=== PATIENT | female | born 1945 | race Caucasian/White ===

== ENCOUNTER 2016-06-27 10:05 | Observation (INO) | payer MEDICARE, OTHER ==
[2016-06-27] VITALS (9 sets, daily range): BP systolic 102–140; BP diastolic 50–70; PULSE 72–88; RESP 14–18; O2SAT 94–100
[~2016-06-27] VITALS: Ht 170.2 cm; Wt 61.8 kg
--- NOTE | 2016-06-27 10:14 | ED.REPORT ---
HPI-General Illness Date of Service June 27, 2016 ED Provider: Dr. An Pt is a 71 y/o female anticoagulated on Warfarin w/ a hx of factor V disorder, atrial fibrillation, hyperlipidemia, presenting to the ED via EMS c/o spinning- sensation dizziness onset this morning. The patient woke up and began experiencing spinning sensation dizziness, fatigue, nausea, and vomiting while laying in bed. These episodes last about 5 seconds each time and have decreased in severity since onset. Her dizziness is exacerbated by horizontal head movements. Symptoms are relived by remaining still. Pt denies any vision change , speech change, headache, focal numbness or weakness, syncope. Nursing Notes Stated Complaint: DIZZY Chief Complaint: General Complaint Nursing Notes Reviewed: Yes Allergies: Coded Allergies: No Known Allergies (Unverified , 06/27/16) Scheduled Atorvastatin (Lipitor) 10 Mg Tab 10 MG PO HS Calcium Carbonate/Vitamin D3 (Calcium 500 + Vit D 200 Tablet) 1 Each Tablet 1 EACH PO DAILY Cholecalciferol (Vitamin D3) (Vitamin D3) 2,000 Unit Tablet 2,000 UNIT PO DAILY Metoprolol Tartrate (Metoprolol Tartrate) 50 Mg Tablet 50 MG PO BID Risedronate Sodium (Risedronate Sodium) 35 Mg Tablet 35 MG PO WEEKLY Warfarin Sodium (Coumadin) 10 Mg Tablet 10 MG PO QPM Scheduled PRN Acyclovir (Acyclovir) 400 Mg Tablet 400 MG PO TID PRN PRN cold sores Alprazolam (Alprazolam) 0.5 Mg Tablet 0.5 MG PO TID PRN PRN For Anxiety General Time Seen by MD: 10:14 Chief Complaint Dizziness Hx Obtained From: Patient, EMS Arrived By: Ambulance Sudden in Onset?: No Onset Occurred: 1 - 4 hours ago Symptom Duration: Since onset Severity: Current: No pain currently Severity: Maximum: No pain Past Medical History Past Medical History Osteoporosis Atrial fibrillation Factor V clotting disorder on Warfarin Hyperlipidemia Past Surgical History Bilateral hip replacement "Bowel surgery" Colostomy reversal Hernia repair Smoking History Unknown if Ever Smoker Social History Alcohol Use: Denies alcohol use Drug Use: Denies drug use Ambulatory Status Independent Review of Systems Full Review of Systems Constitutional: Reports: Fatigue, Denies: Chills, Fever Respiratory: Denies: Non-productive cough, Shortness of breath Cardiovascular: Denies: Chest pain, Dyspnea on exertion GI: Reports: Nausea, Vomiting, Denies: Abdominal pain Neurologic: Reports: Dizziness, Spinning sensation, Denies: Bladder dysfunction, Bowel dysfunction, Change LOC, Confusion, Focal weakness, Headache, Numbness, Seizure, Shaking, Slurred speech, Syncope, Unable to speak, Vision change, Weakness Complete sys rev & neg: except as marked. Physical Exam Vital Signs Vital Signs Date Time Temp Pulse Resp B/P Pulse Ox O2 Delivery O2 Flow Rate FiO2 06/27/16 13:56 76 18 102/50 94 Room Air 06/27/16 12:21 88 16 107/64 97 Room Air 06/27/16 11:06 87 16 121/57 100 Room Air 06/27/16 10:12 36.1 77 14 140/70 97 Room Air Initial VS: Reviewed, Vital signs normal Head / Eyes: Atraumatic, Normocephalic, PERRL ENT: Mucous membranes moist, Conjunctiva normal, No scleral icterus Neck: Supple, Full range of motion Respiratory: Breath sounds normal, Clear to auscultation, No respiratory distress Cardiovascular: Regular rate & rhythm, Heart sounds normal, Intact distal pulses Abdomen / GI: Soft, Non-tender Extremities: Vascular intact, Neuro intact, No swelling, No tenderness Skin: Warm, Dry, No cyanosis Psychiatric: Mood/affect normal, Behavior normal, Normal thought content General/Constitutional: Awake, Alert, No acute distress, Cooperative, Not toxic appearing Neurologic: Oriented X3, Speech NL, No motor deficits, No sensory deficits, CN II - XII intact, Cerebellar NL, Memory NL Transient vertigo lasting 5 seconds triggered by head movements laterally Interpretation & Diagnostics Interpretation & Diagnostics: CT head and neck with perfusion: IMPRESSION: 1. No acute intracranial process. 2. Mild to moderate atrophy and chronic microvascular ischemic changes. 3. No areas of hemodynamically significant stenosis, vascular occlusion or aneurysmal dilation within the anterior circulation. 4. No areas of hemodynamically significant stenosis, vascular occlusion or aneurysmal dilation within the posterior circulation. 5. No areas of hemodynamically significant stenosis, vascular occlusion or aneurysmal dilation within the neck vasculature. Dictated by: Consuelo Mohan M.D. on 06/27/2016 at 13:37 Approved by: Consuelo Mohan M.D. on 06/27/2016 at 13:50 Lab Results Interpretation Result Diagram: 06/27/16 1040 06/27/16 1040 Test 06/27/16 10:40 White Blood Count 5.5th/mm3 (3.8-10.1) Red Blood Count 4.10mil/mm3 (3.90-5.20) Hemoglobin 12.3g/dL (12.0-15.6) Hematocrit 36.5% (35.0-46.0) Mean Corpuscular Volume 89.0fL (81-100) Mean Corpuscular Hemoglobin 30.0pg (27.0-35.0) Mean Corpuscular Hemoglobin Concent 33.7% (32.0-37.0) Red Cell Distribution Width 13.7% (12.3-15.4) Platelet Count 177bil/L (150-400) Neutrophils (%) (Auto) 72.6% (40-74) Lymphocytes (%) (Auto) 18.5% (14-46) Monocytes (%) (Auto) 8.2% (4-12) Eosinophils (%) (Auto) 0.5% (0-5) Basophils (%) (Auto) 0.2% (0-3) Prothrombin Time 34.8sec (8.1-12.5) Prothromb Time International Ratio 3.18ratio Sodium Level 143mEq/L (134-144) Potassium Level 3.7mEq/L (3.5-5.2) Chloride Level 106mEq/L (97-108) Carbon Dioxide Level 21mmol/L (18-29) Blood Urea Nitrogen 15mg/dL (8-27) Creatinine 0.67mg/dL (0.57-1.00) Estimat Glomerular Filtration Rate 125mL/min (>59) Glucose Level 118mg/dL (60-99) Calcium Level 9.2mg/dL (8.5-10.1) Total Bilirubin 0.5mg/dL (0.0-1.2) Aspartate Amino Transf (AST/SGOT) 28U/L (0-50) Alanine Aminotransferase (ALT/SGPT) 18U/L (0-32) Alkaline Phosphatase 64U/L (25-165) Total Protein 6.3g/dL (6.4-8.4) Albumin 4.2g/dL (3.4-5.0) Hold Ocasio Top Tube Received (Received) ECG Interpretation ECG Interpretation: Sinus rhythm rate [address] depression diffusely Time: 11:11 Interpreted by: ED physician Normal ECG Interpretation: No acute ischemic changes CT Head Interpretation IMPRESSION: No acute intracranial abnormality. Dictated by: Chavez Mcneil M.D. on 06/27/2016 at 11:07 Approved by: Chavez Mcneil M.D. on 06/27/2016 at 11:08 Study: Head CT no contrast Interpretation / Wet Read by: Interpret - Radiologist Re-Eval/Medical Decision Med Decision/Clinical Course Overall her story sounds like BPPV however it is refractory to both meclizine and Ativan and she is unable to sit up or ambulate. Her CT brain and CT angiogram head and neck are unremarkable. Unfortunately she is not any clinical status functionally where she would be able to go home. Additionally she is at higher risk in both her warfarin usage puts her at increased risk of bleeding if she did have persistent dizziness and fell as well as her factor V Leiden which puts her at increased risk of thromboembolic events. My plan is to admit her for observation and clinical improvement and allow further delineation as the cause of her dizziness. She is obviously not a TPA candidate as we do not see any obvious signs or symptoms of stroke beyond its sense of vertigo, as well as the fact that she is on warfarin with a supratherapeutic INR, as well as the fact that this was a events and we do not know the exact time of onset which puts her outside of a 3 or 4-1/2 hour window. Time of Eval: 12:00 Re-Evaluation/Progress Note: Failed road test. Plan for observe and possible admit. Time of Eval: 14:40 Re-Evaluation/Progress Note: Pt rechecked. Informed pt of need for admission. Pt understands and agrees with plan for admission. All questions addressed. Consultation : Referral / Consult Name: Yamel Erickson DO Consulted With: Hospitalist Call Returned at: 14:40 Neurology Tech: Will see patient, Agrees with eval, Agrees with plan, Accepts admit Counseled Regarding: Diagnosis, Lab results, Need for admission Discharge & Departure Primary Impression: Vertigo Disposition: ADMITTED TO HOSPITAL Discharge Condition All VS Reviewed: Yes Condition: Stable Referrals: Clover Dutton DO (PCP) Scribe Attestation Portions of this note were transcribed by Chan Traore. IDr. An personally performed the history, physical exam and medical decision-making; I reviewed and confirmed the accuracy of the information in the transcribed note. Signed by Eliud Larkin, 06/27/16 - 1030 copies to: Clover Dutton Timothy S DO June 27, 2016 10:14 CHAN TRAORE June 27, 2016 10:30
[2016-06-27] MEDS ORDERED: 0.9% Sodium Chloride 1,000 ML IV ONE (10:29)
[2016-06-27] MEDS ORDERED: Ondansetron 2 mg/mL 2 mL Inj ONE (10:46)
[2016-06-27 10:59] LABS: BASOPHILS % (AUTO) 0.2 % (0-3); EOSINOPHILS % (AUTO) 0.5 % (0-5); MONOCYTES % (AUTO) 8.2 % (4-12); NEUTROPHILS % (AUTO) 72.6 % (40-74); Platelet Count 177 bil/L (150-400)
--- NOTE | 2016-06-27 11:10 | DRSVH ---
PROCEDURE: CT BRAIN WITHOUT CONTRAST ([id number]) INDICATIONS: dizziness, on coumadin TECHNIQUE: Noncontrast 4.5 mm thick angled axial sections acquired from the foramen magnum to the vertex, with c oronal reformats. COMPARISON: None. FINDINGS: Image quality: Excellent. CSF spaces: Basal cisterns are patent. No extra-axial fluid collections. The ventricles are symmet ivana in size and shape. Brain: No intracranial bleeds or masses. There is cerebral volume loss for age, with resultant vent ricular and sulcal prominence. There are periventricular and deep white matter chronic small vessel ischemic changes. There is intracranial internal carotid artery atherosclerosis. Skull and face: Calvarium and visualized facial bones appear intact, without suspicious lesions. Sinuses: Visualized sinuses and mastoids are clear. IMPRESSION: No acute intracranial abnormality. Dictated by: Chavez Mcniel M.D. on 06/27/2016 at 11:07 Approved by: Chavez Mcneil M.D. on 06/27/2016 at 11:08
[2016-06-27 11:15] LABS: INR 3.18 ratio
[2016-06-27] MEDS ORDERED: Ondansetron 2 mg/mL 2 mL Inj IVPUSH PRN ×2 (11:20→14:50)
--- NOTE | 2016-06-27 13:52 | DRSVH ---
PROCEDURE: CT ANGIO HEAD AND NECK (P) INDICATIONS: dizziness, h/o factor v leiden TECHNIQUE: Pre-contrast 4.5 mm thick sections acquired from the foramen magnum to the vertex. After the adminis tration of intravenous contrast, 1 mm thick sections acquired from the aortic arch through the [place] of [place]. Post-contrast 4.5 mm thick sections then re-acquired from the foramen magnum to the vert ex. 3-dimensional qevbhps-wtrdwgyqq-ikasmuvdqa (MIP) and/or volume rendering reformats were acquired of the central intracranial vasculature and neck separately. For radiation dose reduction, the foll owing was used: automated exposure control, adjustment of mA and/or kV according to patient size. COMPARISON: , CT, CT BRAIN WO CON, 06/27/2016, 10:59. FINDINGS: Image quality: Excellent. BRAIN: CSF spaces: Ventricles are normal in size and shape. Basal cisterns are patent. No extra-axial flu id collections. Brain: No midline shift. No intracranial bleeds or masses. Tapia-white matter interface appears int act. Skull and face: Calvarium and facial bones appear intact, without suspicious lesions. Orbits appear normal. Sinuses: Sinuses and mastoids are clear. HEAD CT ANGIOGRAPHY: Anterior circulation: Intracranial internal carotid arteries are normal in size and flow. The flow within the paired anterior cerebral arteries is normal and symmetric. The flow within the middle cer ebral arteries is normal and symmetric. The anterior communicating artery is seen. No aneurysms are seen. Posterior circulation: Visualized portions of the vertebral arteries demonstrate normal caliber, and join to form a normal appearing basilar artery. Flow within the posterior cerebral arteries is norm al and symmetric. No aneurysms are seen. NECK CT ANGIOGRAPHY: Carotid system: The great vessels demonstrate a conventional anatomy as they arise from the aortic a [facility]. The origins of the common carotid arteries appear patent. The common carotid arteries demonstr ate normal caliber and courses. The bifurcation regions are both widely patent. The internal caroti d arteries demonstrate normal calibers and courses. Posterior circulation: The origins of the vertebral arteries both appear widely patent. The more real perior extracranial portions of both vertebral arteries also demonstrate normal courses and calibers. They join to form a normal appearing basilar artery. Soft tissues: Visualized neck soft tissues demonstrate no suspicious abnormalities. Bones: No suspicious bony lesions. Visualized cervical spine appears normally aligned. IMPRESSION: 1. No acute intracranial process. 2. Mild to moderate atrophy and chronic microvascular ischemic changes. 3. No areas of hemodynamically significant stenosis, vascular occlusion or aneurysmal dilation withi n the anterior circulation. 4. No areas of hemodynamically significant stenosis, vascular occlusion or aneurysmal dilation within the posterior circulation. 5. No areas of hemodynamically significant stenosis, vascular occlusion or aneurysmal dilation within the neck vasculature. Dictated by: Consuelo Mohan M.D. on 06/27/2016 at 13:37 Approved by: Consuelo Mohan M.D. on 06/27/2016 at 13:50
[2016-06-27] MEDS ORDERED: ATRV10T PO (14:12)
[2016-06-27] MEDS ORDERED: ALPR0.5T8 PO (14:12)
[2016-06-27] MEDS ORDERED: WARF10TA PO (14:12)
[2016-06-27] MEDS ORDERED: CALC-72 PO (14:12)
[2016-06-27] MEDS ORDERED: ACYC400T2 PO (14:12)
[2016-06-27] MEDS ORDERED: METO50TA3 PO (14:12)
[2016-06-27] MEDS ORDERED: CHOL200025 PO (14:12)
[2016-06-27] MEDS ORDERED: RISE35TA13 PO (14:12)
[2016-06-27] MEDS ORDERED: Alum-Mag Hydrox-Simeth 30 mL Suspension PO PRN (14:50)
[2016-06-27] MEDS ORDERED: Polyethylene Glycol (PEG) 17 Gm Powder PO PRN (15:25)
[2016-06-27] MEDS: 0.9% Sodium Chloride 1,000 ML IV SCH (15:52)
[2016-06-27 16:09] LABS: APPEARANCE,URINE CLEAR (CLEAR,HAZY); COLOR,URINE YELLOW (YELLOW)
[2016-06-27 16:10] LABS: OCCULT BLOOD,URINE TRACE (NEGATIVE); UROBILINOGEN,URINE NORMAL (NORMAL)
[2016-06-27] MEDS ORDERED: LORazepam 0.5 mg Tablet PO ONE ×2 (16:35→20:50)
--- NOTE | 2016-06-27 16:45 | PCM.HPMED ---
Subjective Date of Service June 27, 2016 Primary Provider: Admitting Physician: Yamel Erickson DO Primary Care Physician: Clover Dutton DO Attending Physician: Yamel Erickson DO Admit Status: From the Emergency Department Chief Complaint: Dizziness History of Present Illness: Wendy Lofton is a 71-year-old white female with past medical history of factor V bleeding, atrial fibrillation, hyperlipidemia is presenting today to the ER via ambulance for dizziness that has been ongoing since 6 AM and she got up. She states that she never had this sensation before. She experienced spinning sensation and her had to help her to the bathroom. Patient denies any recent infections, fevers, chills, UTI, medication changes and sleep problems. She feels well slept fine last night she denies taking any allergy medications, Benadryl. She does have issues with panic attacks but she feels that she is currently feeling fine and was not having a panic attack at the time of the onset of dizziness. Rapid Movements to trigger dizziness. She could not get out of bed at 6 AM today. She did not take her medications the same. She is endorsing facial numbness that only lasted 5 minutes and during her ER visit. She remembers feeling hot and flushed. She denies vision problems , ear pain, ear infections, the area, polyuria, recent weight loss. She does admit to some fatigue, gait unsteadiness, slight headache. In the ER CT of brain, head/neck CTA are both negative for acute findings. She was given 1 L bolus fluids, Ativan, meclizine. She states that Ativan did help her to feel more steady. EKG showed normal sinus rhythm at 80, and diffuse ST depressions. INR was 3.4 other labs are fairly unremarkable. 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 Patient was admitted to the red team for dizziness but could not be treated with conservative management. Review of Systems: Gen.: No weight gain patient denies fevers and malaise Eyes: no visual disturbances or blurring vision HEENT: No nose/throat drainage, no pain in ears or throat, no hearing loss Cardiac: No chest pain, orthopnea, PND, palpitations , pedal edema or +dyspnea on exertion GI: No anorexia, she is endorsing nausea but no vomiting : no dysuria hematuria urinary frequency or decrease in urine output Musculoskeletal: Joint swelling no joint pain no new muscle aches or back pain Neuro: no loss of consciousness no new focal weakness, endorsing numbness or tingling for 5 minutes and they are Psychiatric: New new anxiety insomnia or depression Endocrine: No polyuria or polydipsia, but says that she felt hot for 5 minutes in the ER Hematology: No lymphadenopathy or easy bleeding or bruising noted skin: No new rashes, stasis dermatitis Allergies Coded Allergies: No Known Allergies (Unverified , 06/27/16) PMH Remarkable for factor V Leyden, A. fib, hyperlipidemia, diverticulitis with perforation Surgical History Remarkable for the bilateral hip replacements, colon resection status post colostomy reversal, 2 hernia repairs Family History Mother at 85 of old age Father: 87 due to Alzheimer's Social History Hx Alcohol Use: No Hx Substance Use: No Hx Tobacco Use: No Smoking Status: Never Smoker Living Arrangement: with Family Exam Vital Signs Vital Sign - Last Date Time Temp Pulse Resp B/P Pulse Ox O2 Delivery O2 Flow Rate FiO2 06/27/16 15:30 36.6 78 18 115/66 96 Room Air Exam Gen.: No acute distress laying in bed HEENT: Normocephalic, atraumatic Heart: 1+ systolic murmur, regular rate and rhythm Lungs: Clear to auscultation bilaterally no crackles or wheezes Abdomen: Soft nontender nondistended normal bowel sounds Extremities: Negative for edema Musculoskeletal lower extremities equal and symmetric in strength, finger meteorologist liaison stronger on the right side than left neurological: Including cranial nerves II through XII grossly normal, able to perform Romberg is, [id number], alternating hands intact. Babinski is negative unable to elicit patellar and Achilles reflexes. Vestibular : Positive [place]-Hallpike on right side Psychiatric: Negative for anxiety Lab and Diagnostics Result Diagram: 06/27/16 1040 06/27/16 1040 X-Rays, CTs and MRIs PROCEDURE: CT ANGIO HEAD AND NECK (P) INDICATIONS: dizziness, h/o factor v leiden IMPRESSION: 1. No acute intracranial process. 2. Mild to moderate atrophy and chronic microvascular ischemic changes. 3. No areas of hemodynamically significant stenosis, vascular occlusion or aneurysmal dilation within the anterior circulation. 4. No areas of hemodynamically significant stenosis, vascular occlusion or aneurysmal dilation within the posterior circulation. 5. No areas of hemodynamically significant stenosis, vascular occlusion or aneurysmal dilation within the neck vasculature. Dictated by: Consuelo Mohan M.D. on 06/27/2016 at 13:37 Approved by: Consuelo Mohan M.D. on 06/27/2016 at 13:50 PROCEDURE: CT BRAIN WITHOUT CONTRAST ([id number]) INDICATIONS: dizziness, on coumadin IMPRESSION: No acute intracranial abnormality. Dictated by: Chavez Mcneil M.D. on 06/27/2016 at 11:07 Approved by: Chavez Mcneil M.D. on 06/27/2016 at 11:08 12-lead ECG Normal sinus rhythm 80, and nonspecific ST depressions diffusely Assessment & Plan This is a 71-year-old white female with past medical history of factor V Leyden , A. fib, hyperlipidemia presenting today with intractable dizziness likely due to benign positional vertigo versus stroke versus TIA Assessment #1 dizziness, present on admission: She denies medication changes, dehydration, recent infections, ear infections. Positive [place]-Hallpike on the right side symptoms improved with Ativan. Brain CT and CTA are negative. Her neck does not appear to have any arthritic stenosis type of findings -- Physical therapy consult for vestibular therapy -- Telemonitoring -- Echocardiogram -- Stroke protocol MRI -- Troponin and CK- MB -- Orthostatics -- Normal saline running at 100 mL per hour -- UA with reflex culture -- Meclizine 25 mg 3 times a day when necessary -- Premedicated with Ativan by mouth prior to MRI -- We will hold on Xanax for now Assessment #2 A. fib/factor V Leyden: Supratherapeutic on Coumadin, POA -- Hold Coumadin -- Pharmacy warfarin consult -- Continue metoprolol: We will consider reducing the dose to improve her dizziness 06/28 Assessment #3 hyperlipidemia, chronic -- Continue him on statin Disposition: She will be able able to discharge home 06/28, if her symptoms are better controlled with his with physical therapy and meclizine GI Prophylaxis: Not indicated VTE Prophylaxis: Other (she is currently supratherapeutic on warfarin) VTE Mechanical Devices: Intermittant Pneumatic CD Resuscitation Status: CPR: Attempt Resuscitation ( Warren Shepherd is her ADM) Yamel Erickson DO June 27, 2016 16:45
[2016-06-27 17:11] LABS: Creatine Kinase 85 U/L (21-215)
[2016-06-27 17:19] LABS: TROPONIN T < 0.010 ug/L (0.0-0.011)
--- NOTE | 2016-06-27 18:26 | NUR ---
Admit Pt. admitted from ER in the afternoon. She denied pain. Her main complaints was dizziness with movement and change in body position. She urinated per bedpan. Pt. was oriented to her room, call light, telephone, visiting hours, etc. Pt. will have brain MRI this evening. Lorazepam PO will be given prior to test as ordered.
--- NOTE | 2016-06-27 21:30 | NUR ---
Off UNIT Pt off unit to MRI at 2100. Back on unit at 2130
--- NOTE | 2016-06-27 21:31 | PCM.ADCARE ---
Advance Care Planning Note Purpose of Encounter: Determine patient's goals of care, CODE STATUS, as her alternate decision maker Parties in Attendance: Patient and Dr. Erickson Decisional Capacity: Good Subjective: Patient stated that in light of her age which is 71 she would like to be full code Objective: Patient is a nurse legal support assistant by profession(retired), she is aware of what CODE STATUS means Goals of Care Determinations: Goals of care determination is done at the time of admission Plan: Patient will be full code CODE STATUS: Patient will be full code Time Spent Adv.Care Plannin minutes Adv. Care Plan Documenation: As above, also documented progress note Yamel Erickson DO June 27, 2016 21:30
--- NOTE | 2016-06-27 22:00 | DRSVH ---
PROCEDURE: MRI BRAIN WITHOUT CONTRAST ([id number]) INDICATIONS: Dizziness TECHNIQUE: Non-contrast axial T1 spin echo, axial T2 fast spin echo, sagittal and axial FLAIR, coronal T2 fast s pin echo, axial gradient echo, axial diffusion and ADC through the brain. COMPARISON: [facility], CT, CT BRAIN WO CON, 06/27/2016, 10:59. FINDINGS: Image quality: Partially degraded by motion artifact. CSF spaces: Ventricles appear symmetric in size and shape. Basal cisterns are patent. No extra-axi al fluid collections. Brain: No intracranial bleeds or mass effects. There is cerebral volume loss for age. There are pe riventricular and deep white matter chronic small vessel ischemic changes. Brainstem appears normal. Diffusion-weighted images show no acute ischemic insults. No chronic ischemic insults. Normal int ravascular flow voids are present. Skull and face: Calvarial bone marrow is normal in signal. Orbits are normal. Sinuses: Moderate left mastoid fluid. Sinuses and mastoids are otherwise clear. IMPRESSION: 1. No acute intracranial abnormalities. No recent infarct. 2. Left mastoid fluid. Dictated by: Chavez Mcneil M.D. on 06/27/2016 at 21:58 Approved by: Chavez Mcneil M.D. on 06/27/2016 at 21:59
[2016-06-28] VITALS (9 sets, daily range): BP systolic 95–146; BP diastolic 55–77; PULSE 60–75; RESP 16–18; O2SAT 95–97
[2016-06-28] MEDS: 0.9% Sodium Chloride 1,000 ML IV SCH ×3 (03:41→23:18)
[2016-06-28 06:40] LABS: BASOPHILS % (AUTO) 0.2 % (0-3); EOSINOPHILS % (AUTO) 1.9 % (0-5); MONOCYTES % (AUTO) 9.5 % (4-12); Mean Corpuscular Hemoglobin 30.2 pg (27.0-35.0); Mean Corpuscular Volume 91.3 fL (81-100); NEUTROPHILS % (AUTO) 50.2 % (40-74); Platelet Count 162 bil/L (150-400)
--- NOTE | 2016-06-28 08:23 | NUR ---
Evaluation completed. Please go to "Notes" then click on "Assessments and Notes" (bottom left corner of screen). Then select appropriate discipline tab on top of screen.
[2016-06-28] MEDS ORDERED: ALPRAZolam 0.5 mg Tablet PO PRN (09:35)
--- NOTE | 2016-06-28 10:04 | NUR ---
Case Management: Attempted to give SLAUGHTER and Medicare Part D info at 0950 and 1000; pt having ultrasound done at bedside. Will try again later. BTALEXIA kruse RN
[2016-06-28 10:55] LABS: INR 2.78 ratio
--- NOTE | 2016-06-28 11:29 | NUR ---
Case Management: Pt just completed PT eval. SLAUGHTER and Medicare Part D info given and explained to pt at 11:25 am at bedside. Questions answered. Pt's nurse was present during discussion. ALEXIA Enriquez RN Addendum: 06/28/16 at 1131 by WINSOME LEON CM Signed SUKHJINDER placed on hard chart and copy provided to pt. ALEXIA Enriquez RN
--- NOTE | 2016-06-28 11:37 | DRSVH ---
[facility] [address] [place] [address] Echocardiogram Report Name: LISA BARNARD Guero e: 06/28/2016 Height: 67 in Hospital Exam Location: [facility] Weight: 136 lb Gender: Female BSA: 1.7 m2 : 1945 Age: 71 yrs BP: 109/67 mmHg Reason For Study: Dizziness Performed By: Remi Welch Referring Physician: LENORA BENITEZ Interpretation Summary The left ventricle is normal in size, wall thickness, and systolic function without any focal wall motion abnormalities. The ejection fraction is estimated to be 60-65%. The right ventricle is normal in size, thickness and function. The right ventricular systolic pressure is estimated at 20 mmHg assuming a right atrial pressure of 3 mm Hg. The left atrium is moderately dilated. Right atrial size is normal. There is no significant valvular heart disease. The aortic root is normal size. Procedure: A two-dimensional transthoracic echocardiogram with color flow and Doppler was performed. The study quality was technically good. There is no prior echocardiogram noted for this patient. The patient was in normal sinus rhythm during the exam. Left Ventricle: The left ventricle is normal in size, wall thickness, and systolic function without any focal wall motion abnormalities. The ejection fraction is estimated to be 60-65%. Diastolic function could not be accurately assessed due to contradictory data. Right Ventricle: The right ventricle is normal in size, thickness and function. Atria: The left atrium is moderately dilated. Right atrial size is normal. There is no Doppler evidence for an interatrial shunt. Mitral Valve: The mitral valve leaflets appear to open well. The mitral valve leaflets appear normal. There is no evidence of stenosis, fluttering, or prolapse. There is no mitral valve stenosis. There is trace mitral regurgitation. Aortic Valve: The aortic valve is trileaflet. The aortic valve opens well. No aortic regurgitation is present. Tricuspid Valve: The tricuspid valve is not well visualized, but is grossly normal. There is trace tricuspid regurgitation. The right ventricular systolic pressure is estimated at 20 mmHg assuming a right atrial pressure of 3 mm Hg. Pulmonic Valve: The pulmonic valve is normal in structure and function. There is no pulmonic valvular regurgitation. There is no significant valvular heart disease. Great Vessels: The aortic root is normal size. The ascending aorta is normal in size. The aortic arch is normal in size. The IVC is of normal diameter and collapses greater than 50% with a sniff. This suggests a low right atrial pressure of 3 mm Hg. Pericardium/ Pleura There is no pericardial effusion. There is no pleural effusion. MMode/2D Measurements & Calculations LVIDd: 4.4 cm LA dimension: 3.3 cm RA long axis LVOT diam: 1.9 cm LVIDs: 2.8 cm AoV Opening FS: 35.2 % LA A2 area: 24.9 cm RA area EPSS: 0.37 cm LA A4 area: 23.7 cm Ao root diam IVSd: 0.76 cm LA length (vol) : 19.4 cm LVPWd: 0.72 cm RA vol Aortic Jxn: 2.6 cm LA vol: 83.4 ml : 57.0 ml asc Aorta Diam LA vol index RA : 33.2 mm2 Ao Arch Diam (Prox Trans): 2.7 cm IVC diam: 1.8 cm LV spangler. diameter/BSA LV sys. diameter/BSA RVD1 (basal) RVD2 (mid): 2.7 cm (cm/m^2): 2.5 (cm/m^2): 1.6 Doppler Measurements & Calculations Ao V2 max MV E max jose enrique MV E/A: 2.2 TR max jose enrique : 139.4 cm/sec : 121.1 cm/sec Med Peak E' Jose Enrique : 208.3 cm/sec Ao max PG MV A max jose enrique TR max PG : 7.8 mmHg : 55.8 cm/sec E/E' med: 17.2 : 17.3 mmHg Ao mean PG MV P1/2t: 46.1 msec Lat Peak E' Jose Enrique PA V2 max : 78.0 cm/sec LVOT Max Jose Enrique E/E' lat: 8.9 PA mean PG : 115.6 cm/sec E/e' average: 13.0 Pulm A Revs Dur PA Accel Time UMU(I,D): 2.3 cm : 0.22 sec sev ratio MV A dur: 0.11 sec MV dec time MV P1/2t max jose enrique Ao V2 mean LV V1 max PG : 0.16 sec : 93.4 cm/sec MVA(P1/2t): 4.8 cm2 Ao V2 VTI: 32.6 cm LV V1 VTI UMU(V,D): 2.4 cm2 : 25.4 cm PA V2 mean UMU indexed to BSA Pulm A Revs Dur - MV : 45.5 cm/sec (cm^2/m^2): 1.3 A Dur: 0.00 msec PA pr(Accel) : -18.3 mmHg Reading Physician:CHERRY
--- NOTE | 2016-06-28 13:36 | NUR ---
Social Work- Initial Assessment Data: See Initial Assessment. Pt is a 71 year old female admitted under observation status for vertigo per H&P. Pt's insurance is [employer]. Pt's PCP is Clover Dutton DO. Pt's readmit risk score is 1. SW met with pt in room regarding discharge plan, SW role explained. Pt alert and oriented x3. Pt resides in a home in [place] with her where she is independent at [facility]. Pt is 's caregiver. Pt uses no DME at base, continues to drive. Pt has no HH or SNF history, LTC or VA benefits. Pt has completed her DPOA, SW requested that pt provide copy of DPOA to hospital for her records. Pt to discharge home with neighbors to transport via POV. No anticipated discharge needs. SW will continue to follow if needs arise. Assessment: Pt who is independent at [facility]. Plan: Pt to discharge home with neighbors to transport via POV. No anticipated discharge needs. SW will continue to follow if needs arise. LIVIER Tam Addendum: 06/28/16 at 1341 by SHONNA DURHAM SS Amended: Links added.
[2016-06-28] MEDS: Fluticasone 0.05% 15 Spray/2 Gm 16 Gm Nasal Spray NASAL SCH ×2 (13:45→20:28)
--- NOTE | 2016-06-28 17:40 | PCM.CONPHA ---
Subjective Dizziness Reason for Pharmacy Consult: Anticoagulation Management Assessment/Plan Assessment/Plan WARFARIN DOSING PER PHARMACY (day) [address] [facility] DF KK Date -June 28-June INR 3.18 2.78 INR change -0.4 Warf Dose HOLD 10 HOME DOSE: 10 MG DAILY (CONFIRMED WITH PCP) INDICATION: AFIB A/P -Therapeutic INR following held dose last evening. -Will restart warfarin 10 mg per home dosing. -Pharmacy will continue to monitor Javier Chris, PharmJavier Villar June 28, 2016 17:40
--- NOTE | 2016-06-28 18:31 | NUR ---
Ambulation/Activity Pt. was seen ambulated in the hallway with PT. PRN Meclizine and PRN Xanax was given after PT session. Pt. reported Meclizine was helpful. She was able to sit up supported with HOB elevated without C/O dizziness.
--- NOTE | 2016-06-28 20:19 | PCM.PNMED ---
Subjective Date of Service June 28, 2016 Subjective Patient is feeling slightly better. She denies ear pain or fullness. She does experience tinnitus sometimes. She is not nauseated today. MRI last night was negative for stroke. She cannot recall having recent fevers or chills. Exam Vital Signs Vital Sign - Last Date Time Temp Pulse Resp B/P Pulse Ox O2 Delivery O2 Flow Rate FiO2 06/28/16 09:16 75 06/28/16 05:53 36.4 16 109/67 96 Room Air Intake and Output 06/27/16 06/27/16 06/28/16 Cumulative From/Thru 15:00 23:00 07:00 06/27/16 10:55 - 06/28/16 05:53 Intake Total 1000 ml 244 ml 942 ml 2186 ml Output Total 350 ml 525 ml 875 ml Balance 1000 ml -106 ml 417 ml 1311 ml Intake IV Total 1000 ml 244 ml 942 ml 2186 ml Output Urine Total 350 ml 525 ml 875 ml # Bowel Movements 0 0 Exam HEENT: ear canals and tympanic membrane without erythema and drainage, normocephalic, atraumatic Gen.: No acute distress Ears: neg for tenderness over mastoids Lymphatics : neg for lymphadenopathy. Heart : 1+ systoliuc murmur, regular rate and rhythm Lungs : lungs clear to auscultation, no crackles or wheezes auscultated Neuro: No focal deficits Psych: Negative for anxiety Abdomen nondistended IVs and Medications IV Fluids NSS running at 100 mL per hour Medications Reviewed: Medications were reviewed in detail Lab and Diagnostics Result Diagram: 06/28/16 0610 06/28/16 0610 X-Rays, CTs and MRIs PROCEDURE: CT ANGIO HEAD AND NECK (P) INDICATIONS: dizziness, h/o factor v leiden IMPRESSION: 1. No acute intracranial process. 2. Mild to moderate atrophy and chronic microvascular ischemic changes. 3. No areas of hemodynamically significant stenosis, vascular occlusion or aneurysmal dilation within the anterior circulation. 4. No areas of hemodynamically significant stenosis, vascular occlusion or aneurysmal dilation within the posterior circulation. 5. No areas of hemodynamically significant stenosis, vascular occlusion or aneurysmal dilation within the neck vasculature. Dictated by: Consuelo Mohan M.D. on 06/27/2016 at 13:37 Approved by: Consuelo Mohan M.D. on 06/27/2016 at 13:50 PROCEDURE: CT BRAIN WITHOUT CONTRAST ([id number]) INDICATIONS: dizziness, on coumadin IMPRESSION: No acute intracranial abnormality. Dictated by: Chavez Mcneil M.D. on 06/27/2016 at 11:07 Approved by: Chavez Mcneil M.D. on 06/27/2016 at 11:08 INDICATIONS: Dizziness IMPRESSION: 1. No acute intracranial abnormalities. No recent infarct. 2. Left mastoid fluid. Dictated by: Chavez Mcneil M.D. on 06/27/2016 at 21:58 Approved by: Chavez Mcneil M.D. on 06/27/2016 at 21:59 12-lead ECG Normal sinus rhythm 80, and nonspecific ST depressions diffusely Cardiac Echo Impressions Reason For Study: Dizziness Interpretation Summary The left ventricle is normal in size, wall thickness, and systolic function without any focal wall motion abnormalities. The ejection fraction is estimated to be 60-65%. The right ventricle is normal in size, thickness and function. The right ventricular systolic pressure is estimated at 20 mmHg assuming a right atrial pressure of 3 mm Hg. The left atrium is moderately dilated. Right atrial size is normal. There is no significant valvular heart disease. The aortic root is normal size. Reading Physician:AM Assessment & Plan This is a 71-year-old white female with past medical history of factor V Leyden , A. fib, hyperlipidemia presenting today with intractable dizziness likely due to benign positional vertigo versus stroke versus TIA Assessment #1 dizziness, present on admission: She denies medication changes, dehydration, recent infections, ear infections. Positive [place]-Hallpike on the right side symptoms improved with Ativan. Brain CT and CTA are negative. Her neck does not appear to have any arthritic stenosis type of findings. The patient is to be due to BPPV -- Physical therapy consult for vestibular therapy: Negative with the right- sided BP PV diagnosis, then repeat treatment tomorrow a.m. appreciate their visit. Patient states meclizine is helping -- Telemonitoring -- Echocardiogram: Acute abnormalities noted normal systolic function, dilated left atrium is noted per report -- Stroke protocol MRI: Negative, left mastoid fluid is noted -- Troponin and CK- MB: Negative -- Orthostatics: Still pending -- Normal saline running at 100 mL per hour -- UA with reflex culture: Negative -- Meclizine 25 mg 3 times a day when necessary -- Premedicated with Ativan by mouth prior to MRI -- We will consider hydrochlorothiazide, apparently had blood pressures are too low. -- Decrease the dose of metoprolol medication for A. fib to 25 mg -- Flonase is ordered for nasal congestion Assessment #2 A. fib/factor V Leyden: Supratherapeutic on Coumadin, POA -- Pharmacy warfarin consult -- Metoprolol dose is cut in half Assessment #3 hyperlipidemia, chronic -- Continue home med statin Assessment #4 anxiety disorder chronic - Continue home medications Xanax Assessment #5 osteopenia or osteoporosis: -- Will hold risedronate for now, patient may continue upon going home - Disposition: She will be able able to discharge home 06/29, if her symptoms are better controlled with physical therapy and meclizine GI Prophylaxis: Not indicated VTE Prophylaxis: Other (she is currently supratherapeutic on warfarin) VTE Mechanical Devices: Intermittant Pneumatic CD Resuscitation Status: CPR: Attempt Resuscitation ( Warren Shepherd is her ADM) Time spent 25 minutes Yamel Erickson DO June 28, 2016 09:35
[2016-06-29] VITALS (7 sets, daily range): BP systolic 107–135; BP diastolic 64–81; PULSE 54–71; RESP 16–17; O2SAT 96–97
[2016-06-29] MEDS ORDERED: FLUT16SP NASAL (05:45)
--- NOTE | 2016-06-29 06:17 | NUR ---
Activity Pt was compliant with PT instructions with keeping bed above 30 degrees and not laying on right side. Pt did note some vertigo while laying in bed one time with movement to get onto bedpan. Pt stated she would like to "try and get up to BSC or bathroom this AM and see how I do."
[2016-06-29 06:38] LABS: INR 2.41 ratio
[2016-06-29] MEDS ORDERED: WARF10TA PO (07:49)
[2016-06-29] MEDS: Fluticasone 0.05% 15 Spray/2 Gm 16 Gm Nasal Spray NASAL SCH (08:17)
[2016-06-29] MEDS ORDERED: MECL-114 PO (08:56)
[2016-06-29] MEDS ORDERED: METO50TA3 PO (08:56)
--- NOTE | 2016-06-29 08:58 | PCM.DIMED ---
Discharge Instructions Date of Service June 29, 2016 Dates of Hospitalization June 27, 2016 at 14:58 Discharge Diagnosis Discharge Diagnosis BPPV, afib, Factor V Lieden, nausea, tinnitus Medication Instructions Skip warfarin dose on Monday. F/U INR on Mon the 07/01/16 Diet No restrictions Activity No restrictions Call your provider Fever or Chills, Shortness of breath, Bleeding, Chest pain, Vomitting, Excessive diarrhea, Weakness (unilateral), Other Patient Instructions Please stay well hydrated. Note the reduced dose of metoprolol Please avoid driving till you see the PCP and or ENT and are cleared by them. Follow-up plan F/U with PCP in one week. F/U INR on 07/01/16, send to PCP F/U o/p PT for vestibular therapy/ Julieta F/U with ENT in 1-2 weeks Yamel Erickson DO June 29, 2016 07:52
--- NOTE | 2016-06-29 09:02 | PCM.DC.MED ---
Discharge Summary Date of Service June 29, 2016 Dates of Hospitalization Date of Hospital Admission June 27, 2016 at 14:58 Date of Discharge: June 29, 2016 Providers: Admitting Physician: Yamel Benitez DO Primary Care Physician: Clover Dutton DO Attending Physician: Yamel Benitez DO Diagnosis at Time of Discharge Diagnosis at Time of Discharge BPPV, afib, Factor V Lieden, nausea, tinnitus Consultations PT Procedures XRay, CTs & MRIs PROCEDURE: CT ANGIO HEAD AND NECK (P) INDICATIONS: dizziness, h/o factor v leiden IMPRESSION: 1. No acute intracranial process. 2. Mild to moderate atrophy and chronic microvascular ischemic changes. 3. No areas of hemodynamically significant stenosis, vascular occlusion or aneurysmal dilation within the anterior circulation. 4. No areas of hemodynamically significant stenosis, vascular occlusion or aneurysmal dilation within the posterior circulation. 5. No areas of hemodynamically significant stenosis, vascular occlusion or aneurysmal dilation within the neck vasculature. Dictated by: Consuelo Mohan M.D. on 06/27/2016 at 13:37 Approved by: Consuelo Mohan M.D. on 06/27/2016 at 13:50 PROCEDURE: CT BRAIN WITHOUT CONTRAST ([id number]) INDICATIONS: dizziness, on coumadin IMPRESSION: No acute intracranial abnormality. Dictated by: Chavez Mcneil M.D. on 06/27/2016 at 11:07 Approved by: Chavez Mcneil M.D. on 06/27/2016 at 11:08 INDICATIONS: Dizziness IMPRESSION: 1. No acute intracranial abnormalities. No recent infarct. 2. Left mastoid fluid. Dictated by: Chavez Mcneil M.D. on 06/27/2016 at 21:58 Approved by: Chavez Mcneil M.D. on 06/27/2016 at 21:59 ECG 12 Lead Normal sinus rhythm 80, and nonspecific ST depressions diffusely Cardiac Echo Impression Reason For Study: Dizziness Interpretation Summary The left ventricle is normal in size, wall thickness, and systolic function without any focal wall motion abnormalities. The ejection fraction is estimated to be 60-65%. The right ventricle is normal in size, thickness and function. The right ventricular systolic pressure is estimated at 20 mmHg assuming a right atrial pressure of 3 mm Hg. The left atrium is moderately dilated. Right atrial size is normal. There is no significant valvular heart disease. The aortic root is normal size. Reading Physician:CHERRY Brief History Wendy Lofton is a 71-year-old white female with past medical history of factor V bleeding, atrial fibrillation, hyperlipidemia is presenting today to the ER via ambulance for dizziness that has been ongoing since 6 AM and she got up. She states that she never had this sensation before. She experienced spinning sensation and her had to help her to the bathroom. Patient denies any recent infections, fevers, chills, UTI, medication changes and sleep problems. She feels well slept fine last night she denies taking any allergy medications, Benadryl. She does have issues with panic attacks but she feels that she is currently feeling fine and was not having a panic attack at the time of the onset of dizziness. Rapid Movements to trigger dizziness. She could not get out of bed at 6 AM today. She did not take her medications the same. She is endorsing facial numbness that only lasted 5 minutes and during her ER visit. She remembers feeling hot and flushed. She denies vision problems , ear pain, ear infections, the area, polyuria, recent weight loss. She does admit to some fatigue, gait unsteadiness, slight headache. In the ER CT of brain, head/neck CTA are both negative for acute findings. She was given 1 L bolus fluids, Ativan, meclizine. She states that Ativan did help her to feel more steady. EKG showed normal sinus rhythm at 80, and diffuse ST depressions. INR was 3.4 other labs are fairly unremarkable. 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 Patient was admitted to the red team for dizziness but could not be treated with conservative management. Hospital Course This is a 71-year-old white female with past medical history of factor V Leyden , A. fib, hyperlipidemia presenting today with intractable dizziness likely due to benign positional vertigo versus stroke versus TIA Assessment #1 dizziness, present on admission: She denies medication changes, dehydration, recent infections, ear infections. Positive [place]-Hallpike on the right side symptoms improved with Ativan. Brain CT and CTA are negative. Her neck does not appear to have any arthritic stenosis type of findings. The patient is to be due to BPPV -- Physical therapy consult for vestibular therapy: Negative with the right- sided BP PV diagnosis, then repeat treatment tomorrow a.m. appreciate their visit. Patient states meclizine is helping -- Telemonitoring -- Echocardiogram: Acute abnormalities noted normal systolic function, dilated left atrium is noted per report -- Stroke protocol MRI: Negative, left mastoid fluid is noted: Discussed this finding with the radiologist Dr. Nolen, who states that this may just be proteinaceous material, may not clinically mean mastoiditis. We should clinically correlate -- Troponin and CK- MB: Negative -- Orthostatics: Still pending -- Normal saline running at 100 mL per hour -- UA with reflex culture: Negative -- Meclizine 25 mg 3 times a day when necessary -- Premedicated with Ativan by mouth prior to MRI -- We will consider hydrochlorothiazide, apparently had blood pressures are too low. -- Decrease the dose of metoprolol medication for A. fib to 25 mg -- Flonase is ordered for nasal congestion Assessment #2 benign paroxysmal positional vertigo -- Meclizine when necessary, Flonase for nasal congestion or ordered -- Follow-up ENT appointment is given -- Patient is advised to not drive until she sees PCP and our ENT -- She responded well to that physical therapy vestibular therapy, outpatient physical therapy is ordered -- She was able to walk in the hallways comfortably on the day of discharge Assessment #3 A. fib/factor V Leyden: Supratherapeutic on Coumadin, POA -- Pharmacy warfarin consult: They recommended a skip a dose of 10 mg on Mondays. -- Metoprolol dose is cut in half to avoid dizziness Assessment #3 hyperlipidemia, chronic -- Continue home med statin Assessment #4 anxiety disorder chronic - Continue home medications Xanax Assessment #5 osteopenia or osteoporosis: -- Will hold risedronate for now, patient may continue upon going home Exam Vital Signs (Last) Date Time Temp Pulse Resp B/P Pulse Ox O2 Delivery O2 Flow Rate FiO2 06/29/16 08:19 36.8 71 16 119/73 96 Room Air Exam HEENT: ear canals and tympanic membrane without erythema and drainage, normocephalic, atraumatic Gen.: No acute distress Ears: neg for tenderness over mastoids Lymphatics : neg for lymphadenopathy. Heart : 1+ systoliuc murmur, regular rate and rhythm Lungs : lungs clear to auscultation, no crackles or wheezes auscultated Neuro: No focal deficits Psych: Negative for anxiety Abdomen nondistended Test 06/27/16 10:40 06/27/16 15:54 06/28/16 06:10 06/29/16 05:30 Total Creatine Kinase 85U/L (21-215) Creatine Kinase MB 2.2ng/mL (0.0-5.3) Creatine Kinase MB % % (0.0-5.0) Troponin T < 0.010ug/L (0.0-0.011) Hold Ocasio Top Tube Received (Received) Urine Color Yellow (YELLOW) Urine Appearance Clear (CLEAR,HAZY) Urine pH 5.0 (5.0-8.0) Urine Specific [place] 1.015 (1.003-1.035) Urine Protein Negativemg/dL (NEG,TRACE) Urine Glucose (UA) Negativemg/dL (NEGATIVE) Urine Ketones Tracemg/dL (NEGATIVE) Urine Occult Blood Trace (NEGATIVE) Urine Nitrite Negative (NEGATIVE) Urine Bilirubin Negative (NEGATIVE) Urine Urobilinogen Normalmg/dL (NORMAL) Urine Leukocyte Esterase Negative (NEGATIVE) Urine RBC 0-2/hpf (0-2) Urine WBC 0-5/hpf (0-5) Urine Epithelial Cells None/hpf (NONE-MOD) Urine Crystals None seen (NONE SEEN) Urine Bacteria Few/hpf (NONE-FEW) Urine Hyaline Casts None/lpf (NONE) Urine Granular Casts None seen (NONE SEEN) Urine Waxy Casts None seen (NONE SEEN) Urine Red Blood Cell Casts None seen (NONE SEEN) Urine White Blood Cell Casts None seen (NONE SEEN) Urine Mucus None seen (None Seen) Urine Trichomonas None seen (NONE SEEN) Urine Yeast None (NONE SEEN) Urinalysis Comment None Urine Culture Reflexed Not indicated White Blood Count 4.1th/mm3 (3.8-10.1) Red Blood Count 3.68mil/mm3 (3.90-5.20) Hemoglobin 11.1g/dL (12.0-15.6) Hematocrit 33.6% (35.0-46.0) Mean Corpuscular Volume 91.3fL (81-100) Mean Corpuscular Hemoglobin 30.2pg (27.0-35.0) Mean Corpuscular Hemoglobin Concent 33.0% (32.0-37.0) Red Cell Distribution Width 14.2% (12.3-15.4) Platelet Count 162bil/L (150-400) Neutrophils (%) (Auto) 50.2% (40-74) Lymphocytes (%) (Auto) 38.0% (14-46) Monocytes (%) (Auto) 9.5% (4-12) Eosinophils (%) (Auto) 1.9% (0-5) Basophils (%) (Auto) 0.2% (0-3) Sodium Level 141mEq/L (134-144) Potassium Level 3.7mEq/L (3.5-5.2) Chloride Level 110mEq/L (97-108) Carbon Dioxide Level 21mmol/L (18-29) Blood Urea Nitrogen 12mg/dL (8-27) Creatinine 0.63mg/dL (0.57-1.00) Estimat Glomerular Filtration Rate 134mL/min (>59) Glucose Level 83mg/dL (60-99) Calcium Level 9.0mg/dL (8.5-10.1) Total Bilirubin 0.6mg/dL (0.0-1.2) Aspartate Amino Transf (AST/SGOT) 23U/L (0-50) Alanine Aminotransferase (ALT/SGPT) 14U/L (0-32) Alkaline Phosphatase 51U/L (25-165) Total Protein 5.4g/dL (6.4-8.4) Albumin 3.6g/dL (3.4-5.0) Prothrombin Time 26.3sec (8.1-12.5) Prothromb Time International Ratio 2.41ratio Discharge Medications Discharge Medications Calcium Carbonate/Vitamin D3 (Calcium 500 + Vit D 200 Tablet) 1 Each Tablet 1 EACH PO DAILY (Reported) Cholecalciferol (Vitamin D3) (Vitamin D3) 2,000 Unit Tablet 2,000 UNIT PO DAILY (Reported) Fluticasone Propionate (Fluticasone Propionate Nasal) 16 Gm [place].susp 1 SPRAY NASAL BID Prescribed by: YAMEL BENITEZ DO Metoprolol Tartrate (Metoprolol Tartrate) 50 Mg Tablet 25 MG PO BID Prescribed by: YAMEL BENITEZ DO Risedronate Sodium (Risedronate Sodium) 35 Mg Tablet 35 MG PO WEEKLY (Reported) Warfarin Sodium (Coumadin) 10 Mg Tablet 10 MG PO DAILY Prescribed by: YAMEL BENITEZ DO As needed Acyclovir (Acyclovir) 400 Mg Tablet 400 MG PO TID PRN PRN cold sores (Reported) Alprazolam (Alprazolam) 0.5 Mg Tablet 0.5 MG PO TID PRN PRN For Anxiety ( Reported) Meclizine (Bonine) 25 Mg Tab.chew 25 MG PO TID PRN PRN PRN Prescribed by: YAMEL BENITEZ DO Additional med instructions Skip warfarin dose on Monday. F/U INR on Mon the 07/01/16 Followup Plan Follow-up plan F/U with PCP in one week. F/U INR on 07/01/16, send to PCP F/U o/p PT for vestibular therapy/ Julieta F/U with ENT in 1-2 weeks Discharge Diet: No restrictions Discharge Activity: No restrictions Patient Instructions Please stay well hydrated. Note the reduced dose of metoprolol Please avoid driving till you see the PCP and or ENT and are cleared by them. Yamel Benitez DO June 29, 2016 09:02
--- NOTE | 2016-06-29 11:16 | NUR ---
Social Work: Discharge Data: Pt is on day 2 of hospitalization. EMR reviewed. D/C orders are in. MD states pt requested HH. FACILITY SECURITY OFFICER reviewed chart, pt does not qualify. FACILITY SECURITY OFFICER met with pt, explained PT recommendations of outpt PT and seeing a ENT for vestibular therapy. Pt states she was inquiring for her 's needs, FACILITY SECURITY OFFICER suggested she bring him to his PCP and ask them about HH for him. Pt agreeable to home today. FACILITY SECURITY OFFICER will continue to follow if needs arise. Assessment: Pt who is independent at baseline. Plan: Pt will d/c home today via POV, outpt PT and ENT appointment. No further d/c planning needs anticipated. FACILITY SECURITY OFFICER will continue to follow if needs arise. LIVIER Conway
--- NOTE | 2016-06-29 14:48 | PCM.PHAPRO ---
Progress Dizziness Warfarin maintenance dosing Date -June 28-June 3-June INR 3.18 2.78 2.41 INR change -0.4 -0.37 Warf Dose HOLD 10 10 Patient is in therapeutic range. Today's dose 10mg per continuation of home dosing (10mg PO daily). Home dose confirmed with primary care physician 5/2. Sona Hardin Pharm.D June 29, 2016 14:48
--- NOTE | 2016-06-29 16:09 | NUR ---
discharge home discharge instructions, medications, and follow-up recommendations reviewed with patient. questions answered at this time. patient verbalized understanding and agreed with plan of care. patient escorted to car via wheelchair. friend to drive her home.
== END 2016-06-29 15:55 | disposition home or self-care (01) ==
LOC: SED 10:05 → MOC 14:58
PROVIDERS: ADMIT Family Medicine; ATTEND Family Medicine
DX: H81.10 Benign paroxysmal vertigo, unspecified ear (principal); I48.91 Unspecified atrial fibrillation; D68.2 Hereditary deficiency of other clotting factors; H93.19 Tinnitus, unspecified ear; F41.9 Anxiety disorder, unspecified; R42 Dizziness and giddiness; E78.5 Hyperlipidemia, unspecified; R11.2 Nausea with vomiting, unspecified; M81.0 Age-related osteoporosis without current pathological fracture; Z79.01 Long term (current) use of anticoagulants; Z96.643 Presence of artificial hip joint, bilateral
CPT/HCPCS: 36415; 70450; 70496; 70498; 70551; 80053; 81000; 82550; 82553; 84484; 85025; 85610; 92610; 93005; 96374; 96375; 97162; 97530; 99285; C8929; G8996; G8997; G8998; J2060; J2405; J7030; Q9967